=== PATIENT | male | born 1955 | race Caucasian/White ===

== ENCOUNTER → 2018-11-13 | Outpatient (CLI) | payer OTHER, SELFPAY ==
--- NOTE | 2018-11-13 09:18 | CT_ITS ---
STUDY: CT SCAN HIP LEFT REASON FOR EXAM: Male, 63 years old. 3 week history of left hip pain. RADIATION DOSAGE (If Supplied By Facility): CTDIvol = ( 16.44 ) mGy, DLP = ( 504.74 ) mGycm. Individualized dose optimization techniques were used for this CT.? TECHNIQUE: Multiple axial tomographic images of the left hip were obtained following intra-articular injection of 10 cc of dilute Magnevist. Coronal and sagittal reconstruction was obtained as well. COMPARISON: None. FINDINGS: The battery pack of a pain stimulator device is seen overlying the left buttock. Mild degree of joint space narrowing. There is no evidence of a dislocation. No evidence of impingement. No joint effusion. No mass lesion is seen. CT/Extremity Lower WITH Contrast IMPRESSION: Mild degree of joint space narrowing. No other significant abnormality is seen. Electronically Signed: Walter Estrella, at 10:26 EDT , Service support ,
--- NOTE | 2018-11-13 09:35 | RAD_ITS ---
CLINICAL HISTORY: Male, 63 years old. 3 week history of left hip pain. PROCEDURE: ARTHROGRAM - LEFT HIP CONSENT: The procedure as well as the benefits and possible complications were explained to the patient including infection and bleeding. Informed consent was obtained. FLUOROSCOPY TIME (if supplied): (0:48) minutes/seconds Injection Information: 10 cc of dilute Magnevist. Number of images obtained: 1 TECHNIQUE: (All elements of maximal sterile barrier technique followed, including US elements as applicable) The patient was in the supine position. Skin was prepped and draped in usual sterile fashion. Following local anesthetic application and under direct fluoroscopic guidance, a 22-gauge spinal needle was placed into the hip joint. 2 cc of Isovue-300 was injected for confirmation. Following this, 10 cc of dilute Magnevist was injected. The patient tolerated the procedure well. A CT scan will follow. RAD/Arthrogram Hip IMPRESSION: Intra-articular injection of 10 cc of dilute Magnevist for MRI imaging. A CT scan will follow. The patient tolerated the procedure well. Electronically Signed: Walter Estrella, at 10:22 EDT , Service support ,
== END | disposition home or self-care (01) ==
LOC: RAD 09:12
PROVIDERS: Family Provider Family Medicine; PCP Family Medicine; Referring Provider Specialist; Visit Provider Specialist
DX: M25.552 Pain in left hip (principal)
CPT/HCPCS: 27093; 73525; 73701; A9575; Q9967

== ENCOUNTER → 2019-03-04 14:13 | Outpatient (CLI) | payer OTHER, SELFPAY ==
--- NOTE | 2019-03-04 14:18 | RAD_ITS ---
STUDY: X-RAY - PELVIS REASON FOR EXAM: Male, 63 years old. Bilateral hip pain. TECHNIQUE: One view of the pelvis was obtained. COMPARISON: None. FINDINGS: There is a non-specific bowel gas pattern. Normal visualized soft tissue structures. Neural stimulator seen over the left pelvic wing. Normal bilateral iliac wings, sacroiliac joints and visualized sacrum. Normal visualized bilateral superior and inferior pubic rami. Normal pubic symphysis. Normal ischial tuberosities. Normal visualized right femoral head. Normal right acetabulum. Normal right hip joint. Normal visualized left femoral head. Normal left acetabulum. Normal left hip joint. RAD/Pelvis 1 or 2 Views IMPRESSION: Normal x-ray examination of the pelvis. Electronically Signed: Raymundo Davis MD at 17:03 EDT , Service support ,
[2019-03-04 15:19] LABS: EXAGEN MAILED SPECIMEN
[2019-03-04 15:45] LABS: Absolute Lymphocyte Count 2.35 X10^3/uL (0.83-4.51); Absolute Neutrophil Count 3.5 X10^3/uL (2.0-7.7); Basophil# 0.06 X10^3/uL; Basophil% 0.9 % (0-1); Eosinophil# 0.18 X10^3/uL; Eosinophils% 2.8 % (0-5); Hematocrit 40.8 % (40-54); Hemoglobin 13.4 g/dL (13.0-16.5); Lymphocyte # 2.35 X10^3/ul (4.0); Lymphocyte % 36.2 % (19-41); Mean Corp Hgb Conc 32.8 g/dL (32-36); Mean Corpuscular Hgb 30.1 pg (27.0-32.0); Mean Corpuscular Volume 91.7 fL (80-94); Mean Platelet Vol. 10.1 fl (6.2-12.0); Monocyte# 0.41 X10^3/uL; Monocyte% 6.3 % (0-10); NRBC Flagged by Analyzer 0 % (0-5); Neutrophil # 3.48 X10^3/uL (2.7-7.7); Neutrophil % 53.5 % (47-70); Platelet Count 257 K/mm3 (150-450); RBC Distribution Width CV 12.2 % (11.6-14.6); RBC Distribution Width SD 40.7 fl (35.1-43.9); Red Blood Count 4.45 M/mm3 (4.6-6.2); White Blood Count 6.5 K/mm3 (4.4-11.0)
[2019-03-04 15:56] LABS: Color, Urine Yellow (Yellow); Glucose, Dipstick Normal (Normal); Ketone-Dipstick Negative (Negative); Leukocyte Esterase-Dipstick Negative /ul (Negative); Nitrite-Dipstick Negative (Negative); Occult Blood-Urine Negative /ul (Negative); Protein, Urine (Random) < 6.0 mg/dL (<11.9); Protein-Dipstick Negative (Negative); Specific Gravity, Urine 1.005 (1.002-1.030); Urine Bilirubin Dipstick Negative (Negative); Urine Clarity Clear (Clear); Urine Urobilinogen Normal (Normal); Urine pH 6.5 (5.0 - 8.0)
[2019-03-04 15:58] LABS: AST(SGOT) 13 U/L (15-37); Alanine Aminotransfer ALT/SGPT 24 U/L (16-61); Albumin, Serum 3.9 g/dL (3.2-5.0); Alkaline Phosphatase 96 U/L (45-117); Anion Gap 3 (5-15); BUN 12 mg/dL (7-18); BUN/Creat Ratio 12.2 RATIO (10-20); Calcium,Total 9.2 mg/dL (8.5-10.1); Chloride 106 mmol/L (98-107); Creatinine, Serum 0.98 mg/dL (0.70-1.30); EST Glomerular Filtration Rate 82 mL/min (>60); Est Glom Filt Rate - Afr Amer 99 mL/min (>60); Globulin 3.8 g/dL (2.2-4.2); Glucose 114 mg/dL (74-106); Potassium 4.1 mmol/L (3.5-5.1); Protein, Total 7.7 g/dL (6.4-8.2); Sodium Level 139 mmol/L (136-145)
[2019-03-04 16:35] LABS: Pathologist Comment May follow
[2019-03-04 16:55] LABS: Synovial Fld Mononuclear WBC % 89.1 %; Synovial Fld Polynuclear WBC # 0.012 10^3/uL; Synovial Fld Polynuclear WBC % 10.9 %
[2019-03-04 18:43] LABS: Lymph 15 %; Monocyte /Synovial Fluid 2 %; Neutrophil 1 % (0-25); Other Cell /Synovial Fluid 82 %
[2019-03-04 18:44] LABS: AUTO B FLUID DILUENT BKGD CT WBC <0.1 RBC <0.01 (W<.1,R<.01); Appearance /Synovial Fluid Sl hazy (CLEAR); Color / Synovial Fluid Straw (Pale Yellow); Source / Synovial Fluid RIGHT KNEE; Source- Body Fluid SYNOVIAL
[2019-03-04 18:45] LABS: Body Fluid QC Type(s) BF1Q,BF2Q; RBC /Synovial Fluid 197 /mm3 (0); Synovial Fld Mononuclear WBC # 0.099 10^3/ul
[2019-03-05 09:54] LABS: Hepatitis B Surface Antibody Non-Reactive; Hepatitis B Surface Antigen Non-Reactive (Nonreactive); Hepatitis C Antibody Non-Reactive (Nonreactive)
[2019-03-05 14:17] LABS: Pathologist Review Reviewed
[2019-03-10 16:06] LABS: HLA B27 Negative (.)
== END ==
PROVIDERS: Family Provider Family Medicine; PCP Family Medicine; Referring Provider Internal Medicine Rheumatology; Visit Provider Internal Medicine Rheumatology
DX: M06.4 Inflammatory polyarthropathy (principal); R76.8 Other specified abnormal immunological findings in serum; M47.897 Other spondylosis, lumbosacral region; K21.9 Gastro-esophageal reflux disease without esophagitis; G25.81 Restless legs syndrome; M25.561 Pain in right knee
CPT/HCPCS: 36415; 72170; 80053; 81002; 81374; 82570; 84156; 85025; 86706; 86803; 87070; 87075; 87205; 87340; 89050; 89051; 89060

== ENCOUNTER → 2019-07-01 08:33 | Outpatient (CLI) | payer OTHER, SELFPAY ==
[2019-07-01 09:15] LABS: ALB/GLOB Ratio 1.2 RATIO (0.9-2.4); AST(SGOT) 17 U/L (15-37); Alanine Aminotransfer ALT/SGPT 32 U/L (16-61); Albumin, Serum 3.8 g/dL (3.2-5.0); Alkaline Phosphatase 83 U/L (45-117); Anion Gap 3 (5-15); BUN 15 mg/dL (7-18); BUN/Creat Ratio 13.6 RATIO (10-20); CRP < 2.90 mg/L (0.0-3.0); Calcium,Total 8.8 mg/dL (8.5-10.1); Chloride 105 mmol/L (98-107); EST Glomerular Filtration Rate 72 mL/min (>60); Est Glom Filt Rate - Afr Amer 87 mL/min (>60); Globulin 3.3 g/dL (2.2-4.2); Glucose 127 mg/dL (74-106); Potassium 4.3 mmol/L (3.5-5.1); Protein, Total 7.1 g/dL (6.4-8.2); Sodium Level 137 mmol/L (136-145)
[2019-07-01 09:20] LABS: Erythrocyte Sedimentation Rate 9 mm/hr (0-20)
[2019-07-01 09:22] LABS: Absolute Lymphocyte Count 1.45 X10^3/uL (0.83-4.51); Absolute Neutrophil Count 5.1 X10^3/uL (2.0-7.7); Basophil# 0.06 X10^3/uL; Basophil% 0.9 % (0-1); Eosinophil# 0.04 X10^3/uL; Eosinophils% 0.6 % (0-5); Hematocrit 40.1 % (40-54); Lymphocyte # 1.45 X10^3/ul (4.0); Lymphocyte % 21.2 % (19-41); Mean Corp Hgb Conc 32.4 g/dL (32-36); Mean Corpuscular Volume 92.4 fL (80-94); Mean Platelet Vol. 10.8 fl (6.2-12.0); Monocyte# 0.21 X10^3/uL; Monocyte% 3.1 % (0-10); NRBC Flagged by Analyzer 0 % (0-5); Neutrophil # 5.07 X10^3/uL (2.7-7.7); Neutrophil % 73.9 % (47-70); Platelet Count 270 K/mm3 (150-450); RBC Distribution Width CV 12.9 % (11.6-14.6); RBC Distribution Width SD 43.8 fl (35.1-43.9); Red Blood Count 4.34 M/mm3 (4.6-6.2); White Blood Count 6.9 K/mm3 (4.4-11.0)
== END ==
PROVIDERS: PCP Family Medicine; Referring Provider Internal Medicine Rheumatology; Visit Provider Internal Medicine Rheumatology
DX: M06.4 Inflammatory polyarthropathy (principal); Z79.899 Other long term (current) drug therapy; R76.8 Other specified abnormal immunological findings in serum; M47.897 Other spondylosis, lumbosacral region; M25.561 Pain in right knee; K21.9 Gastro-esophageal reflux disease without esophagitis; G25.81 Restless legs syndrome
CPT/HCPCS: 80053; 85025; 85652; 86140

== ENCOUNTER → 2019-07-14 15:01 | Outpatient (CLI) | payer OTHER, SELFPAY | PROVIDERS: PCP Preventive Medicine Occupational Medicine; Referring Provider Internal Medicine Rheumatology; Visit Provider Internal Medicine Rheumatology | DX: M06.4 Inflammatory polyarthropathy (principal); Z79.899 Other long term (current) drug therapy; R76.8 Other specified abnormal immunological findings in serum; M47.897 Other spondylosis, lumbosacral region; M25.561 Pain in right knee; K21.9 Gastro-esophageal reflux disease without esophagitis; G25.81 Restless legs syndrome | CPT/HCPCS: 36415; 86480 ==

== ENCOUNTER → 2019-07-15 11:08 | Outpatient (CLI) | payer OTHER, SELFPAY ==
[2019-07-17 12:07] LABS: Red Blood Cell Count Test/G6PD 4.45 x10E6/uL (4.14-5.80)
[2019-07-17 15:05] LABS: G6PD Quant Test 305 (146-376)
== END ==
PROVIDERS: PCP Preventive Medicine Occupational Medicine; Visit Provider Internal Medicine Rheumatology
DX: M06.4 Inflammatory polyarthropathy (principal); Z79.899 Other long term (current) drug therapy; R76.8 Other specified abnormal immunological findings in serum; M47.897 Other spondylosis, lumbosacral region; M25.561 Pain in right knee; K21.9 Gastro-esophageal reflux disease without esophagitis; G25.81 Restless legs syndrome
CPT/HCPCS: 82955

== ENCOUNTER 2020-01-18 08:15 | Outpatient (RCR) | payer OTHER, SELFPAY ==
--- NOTE | 2020-01-20 11:57 | HP.FCE ---
Floor (Occasional 1-33% of Day): 70# Floor (Frequent 34-66% of Day): 35# Floor (Constant 67-100% of Day): 14# Floor PDL: Medium Knee (Occasional 1-33% of Day): 75# Knee (Frequent 34-66% of Day): 38# Knee (Constant 67-100% of Day): 15# Knee PDL: Medium-Heavy Waist (Occasional 1-33% of Day): 75# Waist (Frequent 34-66% of Day): 38# Waist (Constant 67-100% of Day): 15# Waist PDL: Medium-Heavy Shoulder (Occasional 1-33% of Day): 50# Shoulder (Frequent 34-66% of Day): 25# Shoulder (Constant 67-100% of Day): 10# Shoulder PDL: Medium Overhead (Occasional 1-33% of Day): 35# Overhead (Frequent 34-66% of Day): 18# Overhead (Constant 67-100% of Day): 7# Overhead PDL: Light-Medium Bending: Frequent Ability (34-66% of day) Squatting: Occasional Ability (1-33% of day) Comments: with exteranl support Kneeling: Occasional Ability (1-33% of day) Comments: low occasional ability with external support Reaching out: Frequent Ability (34-66% of day) Reaching up: Frequent Ability (34-66% of day) Sitting: Frequent Ability (34-66% of day) Walking: Occasional Ability (1-33% of day) Comments: low occasional ability Standing: Occasional Ability (1-33% of day) Duration Sedentary Sedentary Light Light Light Medium Medium Medium Heavy Very Heavy Heavy Occasional (0-33% of day) Frequent (34-66% of day) Constant (67-100% of day) 10 # Negligible Negligible 15 # 8 # Negligible 20 # 10# Negli. 35 # 18 # 7 # 50 # 25 # 10 # 75 # 100 # >100 # 38 # 50 # >50 # 15 # 20 # >20 # Height: 1.83 m Weight:: 86.183 kg Hand Dominance: Right Medical History Including Restrictions: This 64-year-old male was seen for FCE. Pt states he started having back issues 18 years ago. pt states he has had 4 back sx. pt states his first sx was a while ago. pt states last sx was about two-3-4 yrs ago. pt states 1st sx was a laminectomy, pt states he had a body stimulator installed after this procedure. pt states he still has the stimulator but has not used it in last 5-6 years. Pt states the stimulator did not help his back pain. pt states his last two procedures he had performed at the [facility]. pt is unsure what procedure was done. PT states the procedure was done to decrease pain.( possible spine decompression). pt states about three months ago he had knee x rays pt states he does not know the results of the knee x rays pt could not recall who ordered x-ray. Pt states the who did order x-ray told him his knees looked clear- had nerve test that pt states reports leg weakness- pt states no spine x rays in a while. Pain mtg is Angel[facility]. pt states he placed him on 4 medications- pt states this wants to reactivate the stimulator. pt states he has not heard from Dr. Atwood. pt states last spoke to him in December. states he is going to call today- pt states he has not had any therapy services for his back/legs. Pt reports he tries to do stretching exercises. medication IC amitriptyline HCL 25mg tab.,. IC sucralfate 1 GM 1 tablet 4x a day. Omeprazole 40MG 1 x a day. Celecoxib 200 MG 1x a day. Xtampza ER 13.5 mg 1x every 12 hours. IC Pregabalin ( lyrica) 100MG 1 capsule every 8 hours. Alpha lipoic acid 600 mg 1 x a day Diagnoses: Back pain. Leg and foot pain Symptoms: Back pain. left hand/wrist pain pt points to left CMC region Pain: Pt reports he is 10/10 pain states pain medication does not help his legs- states he is going to call pain mtg today to see what else he can have done to get his LE pain under control. Work History: pt employed at [employer] and has been working for 42 almost 43 years. 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 states job required twisting, turning, standing and walking lifting etc. pt states usually they lift 75# with two people. Pt is unsure what is lift requirement for work. Pt states he works 40-80 hours a week. Pt states he has been off work due to pain in legs ad feet. Behavioral: Pt was unsure what the assessment was for but performed tasks that therapist requested. ADLS: Pt lives with in two story home one entry steps with 2 rails. pt states 12-14 steps with one rail going up stairs rail is on the left. Pt mtg. the steps to get to master bedroom and bathroom. pt states he does not go to the basement. Pt states he has a tub shower and is independent with bathing/dressing. Drives ind. Pt states him and his perform cooking/cleaning based on how his legs feel. 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 pt states he just got back from [place] taking care of some property his family has there. Physical Examination: resting heart rate 83. pt dressed in pajama pants and slippers. Pt states slippers are the only thing he can wear due the pain he has in his feet. due to pts report of swelling in knees - therapist took circumference measurements. Right foot 22cm left 22cm. ankle 25.5cm left 26.5cm. Lower calf 22cm left 23m. Calf 34cm left 35cm. Below knee 41cm left 41cm. Knee 41cm left 41cm. No noted temperature change from ankle, calf or knee ROM: pt demo with limited hip flex at 70* bilateral while standing while sitting hip flex at 95* - pt states difficulty with ROM is more due to knee and foot pain. heart rate was 96 while performing ROM. right knee 110* left 120* Strength: With MMT pt demo grossly throughout strength at 4+/5 Right [employer] Hatchery Supervisor Strength Average: 113.33 Right Fish Hatchery Supervisor Strength Percentile: 91% Left Fish Hatchery Supervisor Strength Average: 86.66 Left Fish Hatchery Supervisor Strength Percentile: 45% Right Lateral Pinch Average: 13.00 Right Lateral Pinch Percentile: <10% Left Lateral Pinch Average: 19.33 Left Lateral Pinch Percentile: 0% Right Tripod Pinch Average: 10.00 Right Tripod Pinch Percentile: <10% Left Tripod Pinch Average: 14.00 Left Tripod Pinch Percentile: 25% Sensation: Florien-delano monofilament sensory testing. right digits 3.84 deminished protective sensation. left digits 3.61 deminished light touch sensation. pt states feet are numb - bilateral sensation tested 3.61 deminished light touch sensation Fine Motor: no issues Balance: no loss of balance noted during assessment Bending: pt demo the ability to bend forward three times, ten times and ten times rapidly with good ability pt can bend forward on a frequent ability Squatting: pt demo the ability to squat in limited ROM with external support three times- pt completed 10 times and ten times again but was unable to increase his speed. Pt can squat on an occasional ability with external support heart rate 110 Kneeling: pt demo the ability to kneel with external support three times, pt heart rate increased to 110 but returned within 30 sec to 94- pt attempted 10 times with external support. pt can kneel on a low occasional ability. Reaching out/up: Pt demo the ability to reach out/up three times, ten times and ten times rapidly- pt did this standing with narrow DIVINA- pt can reach up/out on a frequent ability Walking: Pt ambulated on treadmill at speed .9 for 5 min heart rate was 94. pt needed to stop due to burning pain in feet-pt can ambulate on a low occasional ability due to increase in pain. Standing: pt demo the ability to stand for 6 min. pt reported bilateral knee and foot pain. pt can stand on a low occasional ability. Sitting: pt demo the ability to sit for 50 min with no apparent or expressed discomfort Climbing Stairs: pt ascended/descended ten steps with use of rail noted single leg step up while ascending 10 steps- and single leg step down. Pt used railing for both ascending and descending the steps. Floor Lift: Pt demo the ability to lift 70# maximally from this level Knee Lift: Pt demo the ability to lift 75# maximally from this level Waist Lift: Pt demo the ability to lift 75# maximally from this level Shoulder Lift: Pt demo the ability to lift 50# maximally from this level Overhead Lift: Pt demo the ability to lift 35# maximally from this level Carrying: pt demo the ability to carry 50# for 30 feet and 35# for 30 feet with slow ambulation pace. Comments: Pain of feet and knees were limiting factor with ambulation and standing.
--- NOTE | 2020-01-20 14:37 | HP.OTDCSUM_ITS ---
It has been my pleasure to treat NIA NICHOLS under orders from Self Referred, for the diagnosis of for a total of 1 visit(s). Please see the following information for a summary of their discharge status. pt was seen for FCE only If there are questions or concerns regarding this patient's occupational therapy, please fell free to call me at [phone]. Thank you for the ref erral of this patient. Sincerely, Breana Degroot, OTR/L, CHT
== END 2020-01-18 19:00 | disposition home or self-care (01) ==
LOC: OT 08:15
PROVIDERS: PCP Preventive Medicine Occupational Medicine
DX: M54.9 Dorsalgia, unspecified (principal); M79.642 Pain in left hand; M25.532 Pain in left wrist
CPT/HCPCS: 97750